=== PATIENT | male | born 1965 | race Caucasian/White ===

== ENCOUNTER 2019-12-02 14:13 | Inpatient (IN) ==
[2019-12-02] MEDS ORDERED: METOPROLOL TARTRATE 5 MG/5 ML VIAL IV STA ×2 (14:36→15:56)
[2019-12-02] MEDS ORDERED: VANCOMYCIN INJ 1,000 MG in SODIUM CHLORIDE 0.9% 250 ML IV STA (15:03)
[2019-12-02 16:00] LABS: Basophils # 0.1 10*3/uL (0.0-0.2); Basophils % 1.4 % (0.0-0.8); Eosinophils # 0.5 10*3/uL (0.0-0.87); Eosinophils % 5.8 % (0.00-10.9); Hematocrit 44.2 VOL% (42.0-52.0); Hemoglobin 14.5 GM/DL (14.0-18.0); Immature Granulocytes % 0.2 %; Immature Granulocytes Absolute 0.02 #; Lymphocytes % 34.4 % (21.2-54.2); Mean Corpuscular HGB Conc 32.8 GM/DL (32-36); Mean Corpuscular Volume 91.9 FL (87-102); Mean Platelet Volume 10.1 FL (9.6-12.0); Monocytes % 9.4 % (1.7-12.7); Neutrophils % 48.8 % (38.7-73.9); Platelet Count 269 T/CUMM (130-400); Red Blood Count 4.81 MC/CUMM (3.8-5.5); Red Cell Distribution Width 14.3 % (9.3-17.3); White Blood Count 8.7 T/CUMM (4-12)
[2019-12-02 16:10] LABS: Apearance,Urine CLEAR (Clear); Bilirubin,Urine Negative (Negative); Blood, Urine Negative (Negative); Glucose,Urine (UA) 50 mg/dL (Negative); Ketones,Urine Negative (Negative); Mucus,Urine Occasional /LPF (Occasional); Nitrite,Urine Negative (Negative); Protein,Urine Negative; RBC,Urine 2 /HPF (0-4); Urine Color Straw (Yellow); Urine Urobilinogen < 2.0 EU/DL (0.2-1.0); WBC,Urine <1 /HPF (0-6)
[2019-12-02 16:13] LABS: Calcium 8.7 MG/DL (8.5-10.1)
[2019-12-02] MEDS ORDERED: hydrALAZINE 20 MG/1 ML VIAL ONE (16:59)
[2019-12-02] MEDS ORDERED: hydrALAZINE 20 MG/1 ML VIAL IV STA (17:00)
[2019-12-02] MEDS ORDERED: cloNIDine 0.1 MG TABLET ONE (17:07)
[2019-12-02] MEDS ORDERED: KETOROLAC 30 MG/1 ML VIAL ONE (17:07)
[2019-12-02] MEDS ORDERED: cloNIDine 0.1 MG TABLET PO STA (17:15)
[2019-12-02] MEDS ORDERED: KETOROLAC 30 MG/1 ML VIAL IV STA (17:15)
[2019-12-02] MEDS ORDERED: NICOTINE 21 MG/24 HR PATCH TRANSDERM PRN (17:29)
[2019-12-02] MEDS ORDERED: DOCUSATE SODIUM 100 MG CAPSULE PO PRN (17:29)
[2019-12-02] MEDS ORDERED: ONDANSETRON 4 MG/2 ML VIAL IV PRN (17:29)
[2019-12-02] MEDS: cefTRIAXone 1,000 MG in SYRINGE 1 EACH IV SCH ×2 (19:39→21:24)
[2019-12-02] MEDS ORDERED: POTASSIUM CHLORIDE 20 MEQ/15 ML UDCUP PO ONE ×2 (20:23→20:46)
[2019-12-02] MEDS ORDERED: FUROSEMIDE 40 MG/4 ML VIAL IV ONE (20:33)
[2019-12-02] MEDS: APIXABAN 2.5 MG TABLET PO SCH (21:25)
[2019-12-02] MEDS: carvediloL 6.25 MG TABLET PO SCH (21:25)
[2019-12-03] MEDS: VANCOMYCIN INJ 1,500 MG in SODIUM CHLORIDE 0.9% 500 ML IV SCH ×2 (03:29→15:04)
[2019-12-03 06:00] LABS: Basophils # 0.1 10*3/uL (0.0-0.2); Basophils % 1.2 % (0.0-0.8); Eosinophils # 0.7 10*3/uL (0.0-0.87); Eosinophils % 7.7 % (0.00-10.9); Hematocrit 42.9 VOL% (42.0-52.0); Hemoglobin 13.8 GM/DL (14.0-18.0); Immature Granulocytes % 0.2 %; Immature Granulocytes Absolute 0.02 #; Lymphocytes # 3.1 10*3/uL (1.4-4.0); Lymphocytes % 34.7 % (21.2-54.2); Mean Corpuscular HGB Conc 32.2 GM/DL (32-36); Mean Corpuscular Volume 92.3 FL (87-102); Mean Platelet Volume 10.7 FL (9.6-12.0); Monocytes % 10.4 % (1.7-12.7); Neutrophils % 45.8 % (38.7-73.9); Platelet Count 258 T/CUMM (130-400); Red Blood Count 4.65 MC/CUMM (3.8-5.5); Red Cell Distribution Width 14.5 % (9.3-17.3); White Blood Count 8.8 T/CUMM (4-12)
[2019-12-03 06:42] LABS: Albumin 3.4 G/DL (3.4-5.0); Bilirubin,Total 0.7 MG/DL (0.2-1.0); Calcium 8.4 MG/DL (8.5-10.1); Osmolality,Calculated 274.8 MOS/KG (273-304); Risk Ratio 3.89; Thyroid Stimulating Hormone 3.1 uIU/ml (0.358-3.74); Total Protein 6.7 G/DL (6.4-8.3); VLDL CHOLESTEROL 34.4 MG/DL
[2019-12-03] MEDS ORDERED: amLODIPine 5 MG TABLET PO SCH (09:00)
[2019-12-03] MEDS: PANTOPRAZOLE 40 MG TABLET PO SCH (09:55)
[2019-12-03] MEDS: APIXABAN 2.5 MG TABLET PO SCH ×2 (09:56→21:53)
[2019-12-03] MEDS: carvediloL 6.25 MG TABLET PO SCH ×2 (09:56→17:31)
[2019-12-03] MEDS: lisinopriL 5 MG TABLET PO SCH (09:56)
[2019-12-03] MEDS: cefTRIAXone 1,000 MG in SYRINGE 1 EACH IV SCH ×2 (10:35→21:53)
[2019-12-03] MEDS: hydrALAZINE 20 MG/1 ML VIAL IV PRN (10:38)
[2019-12-03] MEDS ORDERED: PERMETHRIN 5% CREAM 60 GM TUBE TOP ONE (16:00)
[2019-12-03] MEDS ORDERED: GLUCAGON 1 MG VIAL IM PRN (16:11)
[2019-12-03] MEDS ORDERED: DEXTROSE 10% 250 ML BAG IV PRN (16:11)
[2019-12-03] MEDS: TRIAMCINOLONE 0.1% CREAM 15 GM TUBE TOP SCH ×2 (16:45→23:13)
[2019-12-03] MEDS: INSULIN LISPRO 100 UNIT/ML SUBCUT SCH (18:09)
[2019-12-04] MEDS: VANCOMYCIN INJ 1,500 MG in SODIUM CHLORIDE 0.9% 500 ML IV SCH ×2 (03:25→15:17)
[2019-12-04 06:07] LABS: Basophils # 0.1 10*3/uL (0.0-0.2); Basophils % 1.2 % (0.0-0.8); Eosinophils # 0.7 10*3/uL (0.0-0.87); Hematocrit 41.3 VOL% (42.0-52.0); Hemoglobin 13.4 GM/DL (14.0-18.0); Immature Granulocytes % 0.2 %; Immature Granulocytes Absolute 0.02 #; Lymphocytes % 32.5 % (21.2-54.2); Mean Corpuscular HGB Conc 32.4 GM/DL (32-36); Mean Corpuscular Volume 91.8 FL (87-102); Mean Platelet Volume 10.6 FL (9.6-12.0); Monocytes % 10.6 % (1.7-12.7); Neutrophils % 48.5 % (38.7-73.9); Platelet Count 234 T/CUMM (130-400); Red Cell Distribution Width 14.4 % (9.3-17.3); White Blood Count 9.3 T/CUMM (4-12)
[2019-12-04 06:29] LABS: Bilirubin,Total 0.4 MG/DL (0.2-1.0); Calcium 8.1 MG/DL (8.5-10.1); Osmolality,Calculated 275.8 MOS/KG (273-304); Total Protein 6.4 G/DL (6.4-8.3)
[2019-12-04] MEDS: INSULIN LISPRO 100 UNIT/ML SUBCUT SCH ×3 (09:19→16:31)
[2019-12-04] MEDS: POTASSIUM CHLORIDE 20 MEQ TABLET PO PRN (09:21)
[2019-12-04] MEDS: APIXABAN 2.5 MG TABLET PO SCH ×2 (09:21→22:17)
[2019-12-04] MEDS: lisinopriL 5 MG TABLET PO SCH (09:21)
[2019-12-04] MEDS: carvediloL 6.25 MG TABLET PO SCH ×2 (09:21→17:31)
[2019-12-04] MEDS: PANTOPRAZOLE 40 MG TABLET PO SCH (09:21)
[2019-12-04] MEDS: TRIAMCINOLONE 0.1% CREAM 15 GM TUBE TOP SCH ×2 (09:24→22:24)
[2019-12-04] MEDS: hydrALAZINE 20 MG/1 ML VIAL IV PRN (12:15)
[2019-12-04] MEDS: cefTRIAXone 1,000 MG in SYRINGE 1 EACH IV SCH (22:16)
[2019-12-05] MEDS: VANCOMYCIN INJ 1,500 MG in SODIUM CHLORIDE 0.9% 500 ML IV SCH ×2 (03:35→15:34)
[2019-12-05 04:57] LABS: Basophils # 0.1 10*3/uL (0.0-0.2); Basophils % 1.1 % (0.0-0.8); Eosinophils # 0.6 10*3/uL (0.0-0.87); Hematocrit 41.8 VOL% (42.0-52.0); Hemoglobin 13.6 GM/DL (14.0-18.0); Immature Granulocytes % 0.2 %; Immature Granulocytes Absolute 0.02 #; Lymphocytes # 3.2 10*3/uL (1.4-4.0); Lymphocytes % 35.8 % (21.2-54.2); Mean Corpuscular HGB Conc 32.5 GM/DL (32-36); Mean Corpuscular Volume 91.9 FL (87-102); Mean Platelet Volume 10.6 FL (9.6-12.0); Monocytes % 10.9 % (1.7-12.7); Platelet Count 231 T/CUMM (130-400); Red Blood Count 4.55 MC/CUMM (3.8-5.5); Red Cell Distribution Width 14.5 % (9.3-17.3)
[2019-12-05 05:18] LABS: Albumin 3.1 G/DL (3.4-5.0); Bilirubin,Total 0.6 MG/DL (0.2-1.0); Osmolality,Calculated 280.5 MOS/KG (273-304); Total Protein 6.5 G/DL (6.4-8.3)
[2019-12-05] MEDS: INSULIN LISPRO 100 UNIT/ML SUBCUT SCH ×3 (08:09→16:10)
[2019-12-05] MEDS: lisinopriL 5 MG TABLET PO SCH (08:49)
[2019-12-05] MEDS: APIXABAN 2.5 MG TABLET PO SCH ×2 (08:49→20:01)
[2019-12-05] MEDS: PANTOPRAZOLE 40 MG TABLET PO SCH (08:50)
[2019-12-05] MEDS: carvediloL 6.25 MG TABLET PO SCH ×2 (08:50→16:38)
[2019-12-05] MEDS: POTASSIUM CHLORIDE 20 MEQ TABLET PO PRN ×2 (08:50→10:41)
[2019-12-05] MEDS: TRIAMCINOLONE 0.1% CREAM 15 GM TUBE TOP SCH ×2 (08:50→20:06)
[2019-12-05] MEDS ORDERED: MAGNESIUM HYDROXIDE SUSP 30 ML UDCUP PO PRN (09:35)
[2019-12-05] MEDS: hydrALAZINE 20 MG/1 ML VIAL IV PRN (16:38)
[2019-12-05] MEDS: cefTRIAXone 1,000 MG in SYRINGE 1 EACH IV SCH (20:01)
[2019-12-06] MEDS: VANCOMYCIN INJ 1,500 MG in SODIUM CHLORIDE 0.9% 500 ML IV SCH (05:20)
[2019-12-06] MEDS: INSULIN LISPRO 100 UNIT/ML SUBCUT SCH (08:13)
[2019-12-06 08:34] VITALS: BP 166/109
[2019-12-06] MEDS: PANTOPRAZOLE 40 MG TABLET PO SCH (08:45)
[2019-12-06] MEDS: carvediloL 6.25 MG TABLET PO SCH (08:45)
[2019-12-06] MEDS: lisinopriL 5 MG TABLET PO SCH (08:45)
[2019-12-06] MEDS: APIXABAN 2.5 MG TABLET PO SCH (08:45)
[2019-12-06] MEDS: TRIAMCINOLONE 0.1% CREAM 15 GM TUBE TOP SCH (08:46)
[2019-12-06 09:33] LABS: Basophils # 0.1 10*3/uL (0.0-0.2); Basophils % 1.5 % (0.0-0.8); Eosinophils # 0.5 10*3/uL (0.0-0.87); Eosinophils % 5.2 % (0.00-10.9); Hematocrit 45.6 VOL% (42.0-52.0); Hemoglobin 14.8 GM/DL (14.0-18.0); Immature Granulocytes % 0.4 %; Immature Granulocytes Absolute 0.04 #; Lymphocytes % 21.5 % (21.2-54.2); Mean Corpuscular HGB Conc 32.5 GM/DL (32-36); Mean Corpuscular Volume 91.9 FL (87-102); Mean Platelet Volume 10.3 FL (9.6-12.0); Monocytes % 9.2 % (1.7-12.7); Neutrophils % 62.2 % (38.7-73.9); Platelet Count 258 T/CUMM (130-400); Red Blood Count 4.96 MC/CUMM (3.8-5.5); Red Cell Distribution Width 14.2 % (9.3-17.3); White Blood Count 9.3 T/CUMM (4-12)
[2019-12-06 09:47] LABS: Calcium 8.8 MG/DL (8.5-10.1); Osmolality,Calculated 269.4 MOS/KG (273-304)
== END 2019-12-06 11:05 | disposition home or self-care (01) | DRG 603 ==
LOC: N.ED 14:13 → N.EDINP 17:22 → N.TELEN 18:01
PROVIDERS: ADMIT Family Medicine; ATTEND Family Medicine